=== PATIENT | female | born 1985 | race Caucasian/White ===

== ENCOUNTER 2017-09-16 14:44 | Outpatient (CLI) | payer MEDICAID ==
[2017-09-20] MEDS ORDERED: HYDR-569 PO (16:10)
[2017-09-20] MEDS ORDERED: CEPH-571 PO (16:10)
[2017-09-22] MEDS ORDERED: HYDR-565 PO (15:00)
== END 2017-09-16 23:59 | disposition home or self-care (01) ==
LOC: RAD 14:44
PROVIDERS: ATTEND Family Medicine Addiction Medicine
DX: S69.91XA Unspecified injury of right wrist, hand and finger(s), initial encounter (principal); M79.641 Pain in right hand; X58.XXXA Exposure to other specified factors, initial encounter; Y93.89 Activity, other specified; Y92.89 Other specified places as the place of occurrence of the external cause; Y99.8 Other external cause status
CPT/HCPCS: 73130

== ENCOUNTER 2017-09-25 08:32 | Emergency (ER) | payer MEDICAID ==
[~2017-09-25] VITALS: Ht 162.6 cm; Wt 120.3 kg
[~2017-09-25 08:32] MED LIST: CEPH-571 PO; HYDR-565 PO; HYDR-569 PO
[2017-09-25 08:33] VITALS: BP 142/89
== END 2017-09-25 09:44 | disposition home or self-care (01) ==
LOC: ER 08:33
DX: S61.300D Unspecified open wound of right index finger with damage to nail, subsequent encounter (principal); Z91.040 Latex allergy status; Z79.2 Long term (current) use of antibiotics; Z79.899 Other long term (current) drug therapy; X58.XXXD Exposure to other specified factors, subsequent encounter
CPT/HCPCS: 99281; A6223; A6449

== ENCOUNTER 2017-10-30 15:48 | Emergency (ER) | payer MEDICAID ==
[~2017-10-30 15:48] MED LIST changes: -HYDR-565 PO
== END 2017-10-30 16:30 | disposition left against medical advice (07) ==
LOC: ER 15:49
DX: R51 Headache (principal); Z53.21 Procedure and treatment not carried out due to patient leaving prior to being seen by health care provider

== ENCOUNTER 2017-10-30 22:03 | Emergency (ER) | payer MEDICAID ==
[~2017-10-30] VITALS: Ht 162.6 cm; Wt 120.1 kg
[2017-10-30 22:41] VITALS: BP 158/90
== END 2017-10-30 22:42 | disposition home or self-care (01) ==
LOC: ER 22:04
DX: S00.03XA Contusion of scalp, initial encounter (principal); Z91.040 Latex allergy status; Z79.899 Other long term (current) drug therapy; W22.8XXA Striking against or struck by other objects, initial encounter; Y93.89 Activity, other specified; Y92.89 Other specified places as the place of occurrence of the external cause; Y99.8 Other external cause status
CPT/HCPCS: 99281

== ENCOUNTER 2021-04-29 12:50 | Emergency (ER) | payer MEDICAID ==
[~2021-04-29] VITALS: Ht 162.6 cm; Wt 113.0 kg
[~2021-04-29 12:50] MED LIST changes: +HYDR-4383 PO; -HYDR-569 PO
[2021-04-29 12:54] VITALS: BP 151/103
[2021-04-29 13:31] LABS: BASOPHILS % (AUTO) 0.5 % (0-1); EOSINOPHILS # (AUTO) 0.2 X10'3 (0-0.9); EOSINOPHILS % (AUTO) 2.7 % (0-6); HEMOGLOBIN 15.5 g/dl (12.0-16.0); LYMPHOCYTES # (AUTO) 2.3 X10'3 (1.1-4.8); MEAN CORPUSCULAR HEMOGLOBIN 30.2 PG (27.0-31.0); MEAN CORPUSCULAR HGB CONC 33.7 g/dL (33.0-36.5); MEAN CORPUSCULAR VOLUME 89.8 FL (78-98); MEAN PLATELET VOLUME 9.1 FL (7.4-10.4); MONOCYTES # (AUTO) 0.7 X10'3 (0-0.9); MONOCYTES % (AUTO) 8.8 % (2-12); NEUTROPHILS # (AUTO) 4.9 X10'3 (1.8-7.7); PLATELET COUNT 301 X10'3 (140-440); RED BLOOD COUNT 5.12 X10'6 (4.20-5.60); RED CELL DISTRIBUTION WIDTH 13.3 % (11.5-14.5); WHITE BLOOD COUNT 8.1 X10'3 (4.5-11.0)
[2021-04-29 13:47] LABS: ALANINE AMINOTRANSFERASE 24 U/L (12-78); ALBUMIN 3.6 G/DL (3.4-5.0); ALBUMIN/GLOBULIN RATIO 0.9 (1.1-1.5); ALKALINE PHOSPHATASE 55 IU/L (46-116); ANION GAP 12 (8-16); ASPARTATE AMINO TRANSFERASE 15 U/L (10-37); BILIRUBIN,TOTAL 0.6 MG/DL (0.1-1.0); BLOOD UREA NITROGEN 11 MG/DL (7-18); BUN/CREATININE RATIO 13.3 (6.6-38.0); CHLORIDE 103 MMOL/L (99-107); CREATININE 0.83 MG/DL (0.40-0.90); GLUCOSE 92 MG/DL (70-104); LIPASE 119 U/L (73-393); POTASSIUM 3.5 MMOL/L (3.5-5.1); SODIUM 140 MMOL/L (135-145); TOTAL CARBON DIOXIDE 24.8 MMOL/L (24-32); TOTAL PROTEIN 7.7 G/DL (6.4-8.2); eGFR 79 ML/MIN
[2021-04-29 13:52] LABS: URINE HCG NEGATIVE (NEG)
[2021-04-29 13:53] LABS: CLARITY,URINE SLIGHTLY CLOUDY (Clear); COLOR,URINE YELLOW (Yellow); GLUCOSE, URINE NEGATIVE (Neg); KETONES,URINE 40 mg/dl (Neg); LEUKOCYTE ESTERASE ,URINE NEGATIVE (Neg); NITRITES, URINE NEGATIVE (Neg); OCCULT BLOOD,URINE NEGATIVE (Neg); PROTEIN,URINE NEGATIVE (Neg); UROBILINOGEN,URINE 0.2 E.U/dL (0.2-1.0)
[2021-04-29 14:06] LABS: UA COLLECTION TYPE CLN CATCH MIDSTREAM
[2021-04-29 14:08] LABS: SQUAMOUS EPITHELIAL CELL,UR MANY /LPF (FEW)
[2021-04-29 14:09] LABS: MUCUS STRANDS FEW /LPF (Neg)
[2021-04-29 14:10] LABS: BACTERIA,URINE 2+ /HPF (Neg); TRANSITIONAL EPI CELLS,URINE FEW /HPF
[2021-04-29 14:11] LABS: RBC,URINE 0-2 /HPF (0-2); WBC,URINE 0-4 /HPF (0-4)
[2021-04-29 14:27] LABS: CALCIUM 8.7 MG/DL (8.5-10.1)
[2021-04-29] MEDS ORDERED: PANT-47 PO (17:49)
[2021-04-29] MEDS ORDERED: ONDA4TAB12 PO (17:49)
== END 2021-04-29 17:56 | disposition home or self-care (01) ==
LOC: ER 12:51
DX: K29.70 Gastritis, unspecified, without bleeding (principal); R10.13 Epigastric pain; R11.2 Nausea with vomiting, unspecified; Z91.040 Latex allergy status; Z79.2 Long term (current) use of antibiotics; Z79.899 Other long term (current) drug therapy
CPT/HCPCS: 36415; 80053; 81001; 81025; 83690; 85025; 99283

== ENCOUNTER 2021-05-02 10:21 | Emergency (ER) | payer MEDICAID ==
[~2021-05-02] VITALS: Ht 162.6 cm; Wt 115.5 kg
[~2021-05-02 10:21] MED LIST changes: +ONDA4TAB12 PO; +PANT-47 PO
[2021-05-02 10:35] VITALS: BP 146/88
[2021-05-02] MEDS ORDERED: IBUP-1986 PO ×2 (12:08→12:30)
== END 2021-05-02 12:18 | disposition home or self-care (01) ==
LOC: ER 10:22
DX: S93.402A Sprain of unspecified ligament of left ankle, initial encounter (principal); M25.572 Pain in left ankle and joints of left foot; Z91.040 Latex allergy status; Z79.2 Long term (current) use of antibiotics; Z79.899 Other long term (current) drug therapy; X58.XXXA Exposure to other specified factors, initial encounter; Y93.01 Activity, walking, marching and hiking; Y92.89 Other specified places as the place of occurrence of the external cause; Y99.8 Other external cause status
CPT/HCPCS: 29515; 73610; 99283

== ENCOUNTER 2021-05-09 10:41 | Emergency (ER) | payer MEDICAID ==
[~2021-05-09] VITALS: Ht 172.7 cm; Wt 140.0 kg
[~2021-05-09 10:41] MED LIST changes: +IBUP-1986 PO
[2021-05-09 10:47] VITALS: BP 155/86
--- NOTE | 2021-05-09 12:37 | NUR ---
PT SEEN, TREATED AND DC FROM TRIAGE
== END 2021-05-09 12:38 | disposition home or self-care (01) ==
LOC: ER 10:41
DX: S93.402A Sprain of unspecified ligament of left ankle, initial encounter (principal); Z91.040 Latex allergy status; Z79.2 Long term (current) use of antibiotics; Z79.899 Other long term (current) drug therapy; X50.1XXA Overexertion from prolonged static or awkward postures, initial encounter; Y93.01 Activity, walking, marching and hiking; Y92.89 Other specified places as the place of occurrence of the external cause; Y99.8 Other external cause status
CPT/HCPCS: 73610; 99283